=== PATIENT | female | born 1975 | race Caucasian/White ===

== ENCOUNTER → 2019-10-16 09:55 | Outpatient (BNVA) | payer MEDICAID, SELFPAY | PROVIDERS: Family Provider General Practice; PCP General Practice; Visit Provider Nurse Practitioner Psychiatric/Mental Health | DX: F33.2 Major depressive disorder, recurrent severe without psychotic features (principal); F43.12 Post-traumatic stress disorder, chronic; F10.10 Alcohol abuse, uncomplicated; F15.20 Other stimulant dependence, uncomplicated; F41.1 Generalized anxiety disorder | CPT/HCPCS: 90792 ==

== ENCOUNTER → 2019-11-16 08:27 | Outpatient (BNVA) | payer MEDICAID, SELFPAY | PROVIDERS: Family Provider General Practice; PCP General Practice; Visit Provider Nurse Practitioner Psychiatric/Mental Health | DX: F33.2 Major depressive disorder, recurrent severe without psychotic features (principal); F43.12 Post-traumatic stress disorder, chronic; F10.10 Alcohol abuse, uncomplicated; F15.20 Other stimulant dependence, uncomplicated | CPT/HCPCS: 99214 ==

== ENCOUNTER → 2019-12-14 08:42 | Outpatient (BNVA) | payer MEDICAID, SELFPAY | PROVIDERS: Family Provider General Practice; PCP General Practice; Visit Provider Nurse Practitioner Psychiatric/Mental Health | DX: F33.2 Major depressive disorder, recurrent severe without psychotic features (principal); F43.12 Post-traumatic stress disorder, chronic; F15.20 Other stimulant dependence, uncomplicated; F10.10 Alcohol abuse, uncomplicated | CPT/HCPCS: 99214 ==

== ENCOUNTER 2019-12-21 10:32 | Outpatient (CLI) | payer OTHER, SELFPAY ==
--- NOTE | 2019-12-21 10:44 | XR_ITS ---
NOTE: Report was unsigned for reason: Ordering provider was edited. Original Signature date and time was: 12/21/19 @1120 WS: [id number] Cervical spine, 3 views, 12/21/2019 Clinical Data: NECK PAIN/NEUROPATHY Comparison: None. Findings: No compression fractures are seen. The disc heights are normal. There is no prevertebral soft tissue swelling. The odontoid is unremarkable. The soft tissues of the neck and the lung apices are normal. MTDD XR/XR cervical spine 3V* [id number] Impression: Negative cervical spine.
--- NOTE | 2019-12-21 10:44 | XR_ITS ---
NOTE: Report was unsigned for reason: Ordering provider was edited. Original Signature date and time was: 12/21/19 @1120 WS: [id number] Right shoulder, 2 views, 12/21/2019 Clinical Data: R SHOULDER INJURY Comparison: None. Findings: No fractures or dislocations are seen. The AC joint is normal. The adjacent right clavicle, right scapula and ribs are normal. The soft tissues are unremarkable. MTDD XR/XR shoulder RT min 2V* [id number] Impression: Negative right shoulder.
== END 2019-12-21 10:33 | disposition home or self-care (01) ==
LOC: RAD 10:37
PROVIDERS: Family Provider General Practice; PCP General Practice; Visit Provider Dermatology
DX: S49.91XA Unspecified injury of right shoulder and upper arm, initial encounter (principal); M54.2 Cervicalgia; G62.9 Polyneuropathy, unspecified; X58.XXXA Exposure to other specified factors, initial encounter
CPT/HCPCS: 72040; 73030

== ENCOUNTER → 2020-03-04 08:19 | Outpatient (BNVA) | payer MEDICAID, SELFPAY | PROVIDERS: Family Provider General Practice; PCP General Practice; Visit Provider Nurse Practitioner Psychiatric/Mental Health | DX: F33.2 Major depressive disorder, recurrent severe without psychotic features (principal); F43.12 Post-traumatic stress disorder, chronic; F15.20 Other stimulant dependence, uncomplicated; F10.10 Alcohol abuse, uncomplicated | CPT/HCPCS: 99214 ==

== ENCOUNTER → 2020-04-08 10:00 | Outpatient (BNVA) | payer MEDICAID, SELFPAY | PROVIDERS: Family Provider General Practice; PCP General Practice; Visit Provider Nurse Practitioner Psychiatric/Mental Health | DX: F33.2 Major depressive disorder, recurrent severe without psychotic features (principal); F43.12 Post-traumatic stress disorder, chronic; F15.20 Other stimulant dependence, uncomplicated; F10.10 Alcohol abuse, uncomplicated | CPT/HCPCS: 99214 ==

== ENCOUNTER → 2020-05-08 07:30 | Outpatient (BNVA) | payer MEDICAID, SELFPAY | PROVIDERS: Family Provider General Practice; PCP General Practice; Visit Provider Nurse Practitioner Psychiatric/Mental Health | DX: F33.2 Major depressive disorder, recurrent severe without psychotic features (principal); F43.12 Post-traumatic stress disorder, chronic; F15.20 Other stimulant dependence, uncomplicated; F10.10 Alcohol abuse, uncomplicated | CPT/HCPCS: 99214 ==

== ENCOUNTER → 2020-06-04 07:41 | Outpatient (BNVA) | payer MEDICAID, SELFPAY | PROVIDERS: Family Provider General Practice; PCP General Practice; Visit Provider Nurse Practitioner Psychiatric/Mental Health | DX: F33.2 Major depressive disorder, recurrent severe without psychotic features (principal); F43.12 Post-traumatic stress disorder, chronic; F15.20 Other stimulant dependence, uncomplicated; F17.210 Nicotine dependence, cigarettes, uncomplicated; F10.10 Alcohol abuse, uncomplicated; F17.200 Nicotine dependence, unspecified, uncomplicated; F11.21 Opioid dependence, in remission | CPT/HCPCS: 99214 ==

== ENCOUNTER → 2020-07-03 08:25 | Outpatient (BNVA) | payer MEDICAID, SELFPAY | PROVIDERS: Family Provider General Practice; PCP General Practice; Visit Provider Nurse Practitioner Psychiatric/Mental Health | DX: F33.2 Major depressive disorder, recurrent severe without psychotic features (principal); F43.12 Post-traumatic stress disorder, chronic; F15.20 Other stimulant dependence, uncomplicated; F17.210 Nicotine dependence, cigarettes, uncomplicated; F10.10 Alcohol abuse, uncomplicated | CPT/HCPCS: 99214 ==

== ENCOUNTER → 2020-07-16 10:57 | Outpatient (BNVA) | payer OTHER, SELFPAY | PROVIDERS: Family Provider General Practice; PCP General Practice; Visit Provider Nurse Practitioner Psychiatric/Mental Health | DX: F33.2 Major depressive disorder, recurrent severe without psychotic features (principal) | CPT/HCPCS: 80061; 83036; 83721 ==

== ENCOUNTER → 2020-07-18 08:13 | Outpatient (BNVA) | payer MEDICAID, SELFPAY ==
[2020-07-17 11:59] VITALS: BP 129/80
[2020-07-17 12:04] VITALS: BMI 23.2
== END ==
PROVIDERS: Family Provider General Practice; PCP General Practice; Visit Provider Nurse Practitioner Psychiatric/Mental Health
DX: F33.2 Major depressive disorder, recurrent severe without psychotic features (principal); F43.12 Post-traumatic stress disorder, chronic; F15.20 Other stimulant dependence, uncomplicated; F10.10 Alcohol abuse, uncomplicated
CPT/HCPCS: 99214

== ENCOUNTER → 2020-08-08 08:21 | Outpatient (BNVA) | payer MEDICAID, SELFPAY ==
[2020-07-17 11:59] VITALS: BP 129/80
[2020-07-17 12:04] VITALS: BMI 23.2
== END ==
PROVIDERS: Family Provider General Practice; PCP General Practice; Visit Provider Nurse Practitioner Psychiatric/Mental Health
DX: F33.2 Major depressive disorder, recurrent severe without psychotic features (principal); F43.12 Post-traumatic stress disorder, chronic; F15.20 Other stimulant dependence, uncomplicated; F17.210 Nicotine dependence, cigarettes, uncomplicated; F10.10 Alcohol abuse, uncomplicated
CPT/HCPCS: 99214

== ENCOUNTER → 2020-09-05 07:17 | Outpatient (BNVA) | payer MEDICAID, SELFPAY ==
[2020-07-17 11:59] VITALS: BP 129/80
[2020-07-17 12:04] VITALS: BMI 23.2
== END ==
PROVIDERS: Family Provider General Practice; PCP General Practice; Visit Provider Nurse Practitioner Psychiatric/Mental Health
DX: F43.12 Post-traumatic stress disorder, chronic (principal); F15.20 Other stimulant dependence, uncomplicated; F10.10 Alcohol abuse, uncomplicated; F17.210 Nicotine dependence, cigarettes, uncomplicated
CPT/HCPCS: 99214

== ENCOUNTER → 2020-12-17 11:09 | Outpatient (BNVA) | payer MEDICAID, OTHER, SELFPAY ==
[2020-07-17 11:59] VITALS: BP 129/80
[2020-07-17 12:04] VITALS: BMI 23.2
== END ==
PROVIDERS: Family Provider General Practice; PCP General Practice; Visit Provider Social Worker Clinical
DX: F15.20 Other stimulant dependence, uncomplicated (principal); F10.10 Alcohol abuse, uncomplicated; F33.2 Major depressive disorder, recurrent severe without psychotic features; F43.12 Post-traumatic stress disorder, chronic
CPT/HCPCS: 90834

== ENCOUNTER → 2021-02-24 13:42 | Outpatient (BNVA) | payer MEDICAID, SELFPAY ==
[2020-07-17 11:59] VITALS: BP 129/80
[2020-07-17 12:04] VITALS: BMI 23.2
== END ==
PROVIDERS: Family Provider General Practice; PCP General Practice; Visit Provider Nurse Practitioner Psychiatric/Mental Health
DX: F33.2 Major depressive disorder, recurrent severe without psychotic features (principal); F43.12 Post-traumatic stress disorder, chronic; F17.210 Nicotine dependence, cigarettes, uncomplicated; F15.20 Other stimulant dependence, uncomplicated; F10.10 Alcohol abuse, uncomplicated
CPT/HCPCS: 99214

== ENCOUNTER → 2021-02-27 15:52 | Outpatient (BNVA) | payer MEDICAID, OTHER, SELFPAY ==
[2020-07-17 11:59] VITALS: BP 129/80
[2020-07-17 12:04] VITALS: BMI 23.2
== END ==
PROVIDERS: Family Provider General Practice; PCP General Practice; Visit Provider Social Worker Clinical
DX: F43.12 Post-traumatic stress disorder, chronic (principal); F15.20 Other stimulant dependence, uncomplicated; F10.10 Alcohol abuse, uncomplicated; F33.2 Major depressive disorder, recurrent severe without psychotic features
CPT/HCPCS: 90834

== ENCOUNTER → 2021-03-26 11:33 | Outpatient (BNVA) | payer OTHER, SELFPAY ==
[2020-07-17 11:59] VITALS: BP 129/80
[2020-07-17 12:04] VITALS: BMI 23.2
== END ==
PROVIDERS: Family Provider General Practice; PCP General Practice; Visit Provider Nurse Practitioner Psychiatric/Mental Health
DX: Z79.899 Other long term (current) drug therapy (principal); F33.2 Major depressive disorder, recurrent severe without psychotic features
CPT/HCPCS: 80061; 83036

== ENCOUNTER → 2021-04-01 07:44 | Outpatient (BNVA) | payer MEDICARE, MEDICAID, SELFPAY ==
[2021-03-28 14:06] VITALS: BMI 21.1
== END ==
PROVIDERS: Family Provider General Practice; PCP General Practice; Visit Provider Nurse Practitioner Psychiatric/Mental Health
DX: F33.2 Major depressive disorder, recurrent severe without psychotic features (principal); F43.12 Post-traumatic stress disorder, chronic; F17.210 Nicotine dependence, cigarettes, uncomplicated; F15.20 Other stimulant dependence, uncomplicated; F10.10 Alcohol abuse, uncomplicated
CPT/HCPCS: 99214

== ENCOUNTER → 2021-04-08 13:01 | Outpatient (BNVA) | payer MEDICARE, MEDICAID, SELFPAY ==
[2021-03-28 14:06] VITALS: BMI 21.1
== END ==
PROVIDERS: Family Provider General Practice; PCP General Practice; Visit Provider Social Worker Clinical
DX: F43.12 Post-traumatic stress disorder, chronic (principal); F15.20 Other stimulant dependence, uncomplicated; F10.10 Alcohol abuse, uncomplicated; F33.2 Major depressive disorder, recurrent severe without psychotic features
CPT/HCPCS: 90834

== ENCOUNTER → 2021-04-22 13:03 | Outpatient (BNVA) | payer MEDICARE, MEDICAID, SELFPAY ==
[2021-03-28 14:06] VITALS: BMI 21.1
== END ==
PROVIDERS: Family Provider General Practice; PCP General Practice; Visit Provider Social Worker Clinical
DX: F43.12 Post-traumatic stress disorder, chronic (principal); F15.20 Other stimulant dependence, uncomplicated; F10.10 Alcohol abuse, uncomplicated; F33.2 Major depressive disorder, recurrent severe without psychotic features
CPT/HCPCS: 90834

== ENCOUNTER → 2021-04-30 14:08 | Outpatient (BNVA) | payer MEDICARE, MEDICAID, OTHER, SELFPAY ==
[2021-03-28 14:06] VITALS: BMI 21.1
== END ==
PROVIDERS: Family Provider General Practice; PCP General Practice; Visit Provider Social Worker Clinical
DX: F43.12 Post-traumatic stress disorder, chronic (principal); F15.20 Other stimulant dependence, uncomplicated; F10.10 Alcohol abuse, uncomplicated; F33.2 Major depressive disorder, recurrent severe without psychotic features
CPT/HCPCS: 90834

== ENCOUNTER → 2021-05-06 08:26 | Outpatient (BNVA) | payer MEDICARE, MEDICAID, SELFPAY ==
[2021-03-28 14:06] VITALS: BMI 21.1
== END ==
PROVIDERS: Family Provider General Practice; PCP General Practice; Visit Provider Nurse Practitioner Psychiatric/Mental Health
DX: F33.2 Major depressive disorder, recurrent severe without psychotic features (principal); F43.12 Post-traumatic stress disorder, chronic; F15.20 Other stimulant dependence, uncomplicated; F10.10 Alcohol abuse, uncomplicated; F17.210 Nicotine dependence, cigarettes, uncomplicated
CPT/HCPCS: 99214

== ENCOUNTER → 2022-04-16 12:50 | Outpatient (BNVA) | payer OTHER, SELFPAY ==
[2022-04-09 10:26] VITALS: BMI 21.1
== END ==
PROVIDERS: Family Provider General Practice; PCP Family Medicine; Visit Provider Nurse Practitioner Psychiatric/Mental Health
DX: F33.2 Major depressive disorder, recurrent severe without psychotic features (principal); Z79.899 Other long term (current) drug therapy
CPT/HCPCS: 80061; 83036

== ENCOUNTER → 2022-07-14 13:27 | Outpatient (BNVA) | payer MEDICARE, MEDICAID, SELFPAY ==
[2022-05-13 11:15] VITALS: BP 142/93; BMI 25.2
== END ==
PROVIDERS: Family Provider General Practice; PCP Family Medicine; Visit Provider Psychiatry & Neurology Neurology
DX: Z79.899 Other long term (current) drug therapy (principal)
CPT/HCPCS: 80053; 80307; 86705; 86706; 86709; 86803; 87340

== ENCOUNTER → 2022-07-30 11:04 | Outpatient (BNVA) | payer MEDICARE, MEDICAID, SELFPAY ==
[2022-07-27 07:12] VITALS: BP 142/93; BMI 25.2
== END ==
PROVIDERS: Family Provider General Practice; PCP Family Medicine; Visit Provider Nurse Practitioner Psychiatric/Mental Health
DX: Z79.899 Other long term (current) drug therapy (principal)
CPT/HCPCS: 80307

== ENCOUNTER → 2022-09-02 14:57 | Outpatient (BNVA) | payer MEDICARE, MEDICAID, SELFPAY ==
[2022-08-26 11:05] VITALS: BP 142/93; BMI 25.2
== END ==
PROVIDERS: Family Provider General Practice; PCP Family Medicine; Visit Provider Psychiatry & Neurology Neurology
DX: Z79.899 Other long term (current) drug therapy (principal)
CPT/HCPCS: 80053; 80307

== ENCOUNTER → 2023-05-10 12:13 | Outpatient (BNVA) | payer OTHER, SELFPAY ==
[2023-04-26 12:01] VITALS: BP 142/93; BMI 25.2
== END ==
PROVIDERS: Family Provider General Practice; Visit Provider Psychiatry & Neurology Psychiatry
DX: F33.2 Major depressive disorder, recurrent severe without psychotic features (principal); F43.12 Post-traumatic stress disorder, chronic; Z79.899 Other long term (current) drug therapy
CPT/HCPCS: 80061

== ENCOUNTER → 2023-09-27 09:35 | Outpatient (BNVA) | payer OTHER, SELFPAY ==
[2023-08-25 12:18] VITALS: BP 128/78; BMI 22.2
== END ==
PROVIDERS: Family Provider General Practice; Visit Provider Psychiatry & Neurology Psychiatry
DX: F33.2 Major depressive disorder, recurrent severe without psychotic features (principal); Z79.899 Other long term (current) drug therapy; F43.12 Post-traumatic stress disorder, chronic
CPT/HCPCS: 80061; 83036

== ENCOUNTER 2024-05-24 15:32 | Emergency (ER) | payer MEDICARE, SELFPAY ==
[2023-11-11 10:04] VITALS: BP 126/85; BMI 20.5
[2024-05-24 15:39] VITALS: BP 166/111; PULSE 70; RESP 18; TEMP 36.7; O2SAT 98; BMI 21.6
[2024-05-24 15:51] VITALS: PULSE 94; RESP 18; O2SAT 98
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
[2024-05-24 15:55] VITALS: BP 160/102; PULSE 99; O2SAT 99
--- NOTE | 2024-05-24 15:55 | XR_ITS ---
WS: [id number] XR hand RT min 3V* [id number] REASON FOR EXAM: pain over right thenar eminence FINDINGS: Presumed trauma. Lateral and posterior displacement of the first metacarpal in relation to the trapezium. No associated fracture is identified. The remainder of the bone and joint structure of the right hand is intact without acute abnormality. XR/XR hand RT min 3V* [id number] IMPRESSION: Presumed carpal metacarpal dislocation at the base of the thumb.
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
[2024-05-24] MEDS: HYDROcodone-acetaminophen 5-325 mg Tablet 1 TAB PO (16:11)
[2024-05-24 16:12] VITALS: PULSE 98; O2SAT 100
[2024-05-24] MEDS: ondansetron 4 MG Tablet PO (16:17)
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
[2024-05-24 17:48] VITALS: BP 158/93; PULSE 88; O2SAT 98
== END 2024-05-24 17:48 | disposition home or self-care (01) ==
PROVIDERS: Emergency Provider Physician Assistant
DX: S02.2XXA Fracture of nasal bones, initial encounter for closed fracture (principal); S60.221A Contusion of right hand, initial encounter; M26.643 Arthritis of bilateral temporomandibular joint; Y04.8XXA Assault by other bodily force, initial encounter; F17.290 Nicotine dependence, other tobacco product, uncomplicated
CPT/HCPCS: 70450; 70486; 72125; 73130; 99284; Q0162